=== PATIENT | male | born 1945 | race Caucasian/White ===

== ENCOUNTER 2022-01-23 19:49 | Emergency (ER) | payer OTHER ==
[~2022-01-23] VITALS: Ht 172.7 cm; Wt 68.0 kg
[2022-01-23] MEDS ORDERED: ASPIRIN81 MG (20:20)
[2022-01-23] MEDS ORDERED: BRILINTA60 MG (20:20)
== END 2022-01-23 22:15 | disposition home or self-care (01) ==
LOC: ER 19:49
DX: R33.8 Other retention of urine (principal); Z88.2 Allergy status to sulfonamides; Z88.8 Allergy status to other drugs, medicaments and biological substances; I11.9 Hypertensive heart disease without heart failure